=== PATIENT | male | born 1945 | race Caucasian/White ===

== ENCOUNTER 2017-05-29 12:36 | Inpatient (IN) | payer MEDICARE, OTHER ==
[2017-05-29] MEDS ORDERED: LIDOCAINE 4% CR (13:27)
[2017-05-29] MEDS: SODIUM CHLORIDE 0.9% 1L BAG IV* (13:54)
[2017-05-29] MEDS: PIPER-TAZO 3.375 GM IV (PMX) 100 ML IVPB ×2 (13:54→21:32)
[2017-05-29 13:58] LABS: ADD UMIC YES; UR AMORPHOUS CRYSTAL FEW /HPF (NONE SEEN); UR ASCORBIC ACID 40 mg/dL (NEGATIVE); UR BACTERIA FEW /HPF (NONE SEEN); UR BILIRUBIN (Dip) NEGATIVE (NEGATIVE); UR BLOOD (Dip) 1+ mg/dL (NEGATIVE); UR CLARITY CLOUDY (CLEAR); UR COLOR YELLOW (YELLOW); UR GLUCOSE (Dip) NEGATIVE (NEGATIVE); UR KETONES (Dip) NEGATIVE (NEGATIVE); UR LEUKOCYTE ESTERASE (Dip) 3+ Leu/ul (NEGATIVE); UR MUCUS FEW /HPF (NONE SEEN); UR NITRITE (Dip) NEGATIVE (NEGATIVE); UR RBC 38 /HPF (0-5); UR SPECIFIC GRAVITY (Dip) 1.015 (1.003-1.030); UR TOTAL PROTEIN (Dip) NEGATIVE (NEGATIVE); UR UROBILINOGEN (Dip) 2+ mg/dL (NEGATIVE); UR WBC 108 /HPF (0-5)
[2017-05-29 14:07] LABS: ADD MAN DIFF? NO
[2017-05-29 14:09] LABS: WHITE BLOOD COUNT 9.4 10^3/ul (4.8-10.8)
[2017-05-29 14:09] LABS: BASOPHILS % 0.3 % (0.0-2.0); EOSINOPHILS % 0.2 % (0.0-7.0); HEMATOCRIT 34.2 % (42.0-52.0); HEMOGLOBIN 10.9 g/dl (14.0-18.0); LYMPHOCYTES # 1.6 10^3/ul (0.8-2.9); LYMPHOCYTES % 17.4 % (15.0-51.0); MEAN CORPUSCULAR HEMOGLOBIN 26.7 pg (29.0-33.0); MEAN CORPUSCULAR HGB CONC 31.9 g/dl (32.0-37.0); MEAN CORPUSCULAR VOLUME 83.6 fl (82.0-101.0); MEAN PLATELET VOLUME 9.3 fl (7.4-10.4); MONOCYTE # 0.4 10^3/ul (0.3-0.9); NEUTROPHIL # 7.2 10^3/ul (1.6-7.5); NEUTROPHILS % 76.8 % (39.0-77.0); PLATELET COUNT 338 10^3/UL (140-415); RED BLOOD COUNT 4.09 10^6/ul (4.70-6.10); RED CELL DISTRIBUTION WIDTH 15.1 % (11.5-14.5)
[2017-05-29 14:31] LABS: ALANINE AMINOTRANSFERASE 52 IU/L (13-69); ALBUMIN 3.1 g/dl (3.3-4.9); ALBUMIN/GLOBULIN RATIO 0.73; ALKALINE PHOSPHATASE 202 IU/L (42-121); ANION GAP 16 (8-16); ASPARTATE AMINO TRANSFERASE 46 IU/L (15-46); BILIRUBIN,INDIRECT 0.3 mg/dl (0-1.1); BILIRUBIN,TOTAL 0.3 mg/dl (0.2-1.3); BLOOD UREA NITROGEN 12 mg/dl (7-20); CALCIUM 8.9 mg/dl (8.4-10.2); CARBON DIOXIDE 25 mmol/L (21-31); CHLORIDE 102 mmol/L (97-110); CREATININE 0.69 mg/dl (0.61-1.24); GLUCOSE 195 mg/dl (70-220); POTASSIUM 4.1 mmol/L (3.5-5.1); SODIUM 139 mmol/L (135-144); TOTAL PROTEIN 7.3 g/dl (6.1-8.1)
[2017-05-29 14:32] LABS: INR 3.54; PROTIME 36.6 Sec (11.9-14.9); PT RATIO 2.9
[2017-05-29 14:33] LABS: PARTIAL THROMBOPLASTIN TIME 62.6 Sec (25.0-35.0)
[2017-05-29 14:35] LABS: LACTIC ACID 3.2 mmol/L (0.5-2.0)
[2017-05-29] MEDS: VANCOMYCIN 1 GM (PMX) 250 ML IVPB (14:38)
[2017-05-29 15:08] LABS: TROPONIN-I < 0.012 ng/ml (0.00-0.12)
[2017-05-29 16:30] LABS: LACTIC ACID 1.9 mmol/L (0.5-2.0)
[2017-05-29] MEDS ORDERED: ONDANSETRON 4 MG INJ IV ×2 (16:30)
[2017-05-29] MEDS ORDERED: morphine 2 MG INJ IV (16:30)
[2017-05-29] MEDS ORDERED: HYDROCODONE/APAP (5/325) TAB PO ×2 (16:30)
[2017-05-29] MEDS ORDERED: ACETAMINOPHEN 325 MG TAB PO ×2 (16:30)
[2017-05-29] MEDS ORDERED: MAGNESIUM HYDROXIDE 30ML CUP PO (16:30)
[2017-05-29] MEDS ORDERED: NACL 0.9% 3 ML SYG IV (16:30)
[2017-05-29 16:51] LABS: HEMOGLOBIN A1C 6.8 % (0-5.9)
[2017-05-29] MEDS ORDERED: GLUCOSE GEL 15 GRAM TUBE BUCCAL (17:30)
[2017-05-29] MEDS ORDERED: DEXTROSE 50% 50 ML SYRINGE IV ×2 (17:30)
[2017-05-29] MEDS ORDERED: GLUCAGON 1 MG INJ IM (17:30)
[2017-05-29] MEDS ORDERED: GLUCOSE GEL 15 GRAM TUBE PO ×2 (17:30)
[2017-05-29] MEDS ORDERED: VANCOMYCIN IV PER PHARMACY XX (17:30)
[2017-05-29] MEDS: SOD CHLORIDE 0.9% 1,000 ML IV ×2 (17:50→21:54)
[2017-05-29] MEDS: INSULIN ASPART [NOVOLOG] 3 ML PEN SC ×2 (18:05→20:57)
[2017-05-29 19:46] LABS: LACTIC ACID 1.5 mmol/L (0.5-2.0)
[2017-05-29] MEDS ORDERED: PENDING SANTYL ORDER FOR WOUND CARE XX (21:00)
[2017-05-29] MEDS ORDERED: COLLAGENASE 30 GM TUBE TOP (21:00)
[2017-05-29] MEDS: COLLAGENASE 30 GM TUBE TOP (21:32)
[2017-05-29] MEDS ORDERED: VANCOMYCIN 750 MG in DEXTROSE 5% 150 ML IVPB (22:00)
[2017-05-29] MEDS ORDERED: VANCOMYCIN 750 MG in SOD CHLORIDE 0.9% 150 ML IVPB (22:00)
[2017-05-29] MEDS: VANCOMYCIN 750 MG in DEXTROSE 5% 150 ML IVPB (22:20)
[2017-05-30] MEDS: SOD CHLORIDE 0.9% 500 ML IV (00:44)
[2017-05-30] MEDS: ALBUTEROL 0.083% (NEB) 2.5 MG/3 ML AMP HHN ×2 (02:46→20:46)
[2017-05-30] MEDS: PIPER-TAZO 3.375 GM IV (PMX) 100 ML IVPB ×3 (05:32→22:49)
[2017-05-30] MEDS: PANTOPRAZOLE (EC) 40 MG TAB PO (05:32)
[2017-05-30] MEDS: SOD CHLORIDE 0.9% 1,000 ML IV (05:46)
[2017-05-30] MEDS: INSULIN ASPART [NOVOLOG] 3 ML PEN SC ×4 (08:00→20:31)
[2017-05-30] MEDS: COLLAGENASE 30 GM TUBE TOP (08:30)
[2017-05-30] MEDS: VANCOMYCIN 750 MG in DEXTROSE 5% 150 ML IVPB (10:58)
[2017-05-30 11:25] LABS: ADD MAN DIFF? NO
[2017-05-30 11:30] LABS: WHITE BLOOD COUNT 6.9 10^3/ul (4.8-10.8)
[2017-05-30 11:30] LABS: BASOPHILS % 0.3 % (0.0-2.0); EOSINOPHILS % 0.4 % (0.0-7.0); HEMATOCRIT 24.8 % (42.0-52.0); LYMPHOCYTES # 1.7 10^3/ul (0.8-2.9); LYMPHOCYTES % 24.7 % (15.0-51.0); MEAN CORPUSCULAR HEMOGLOBIN 26.8 pg (29.0-33.0); MEAN CORPUSCULAR HGB CONC 32.3 g/dl (32.0-37.0); MEAN CORPUSCULAR VOLUME 83.2 fl (82.0-101.0); MEAN PLATELET VOLUME 9.3 fl (7.4-10.4); MONOCYTE # 0.5 10^3/ul (0.3-0.9); MONOCYTES % 6.5 % (0.0-11.0); NEUTROPHIL # 4.6 10^3/ul (1.6-7.5); NEUTROPHILS % 67.1 % (39.0-77.0); PLATELET COUNT 260 10^3/UL (140-415); RED BLOOD COUNT 2.98 10^6/ul (4.70-6.10)
[2017-05-30 11:48] LABS: ANION GAP 10 (8-16); BLOOD UREA NITROGEN 7 mg/dl (7-20); CARBON DIOXIDE 22 mmol/L (21-31); CHLORIDE 114 mmol/L (97-110); CREATININE 0.43 mg/dl (0.61-1.24); GLUCOSE 120 mg/dl (70-220); INR 4.49; MAGNESIUM 1.4 mg/dl (1.7-2.5); PHOSPHORUS 2.9 mg/dl (2.5-4.9); POTASSIUM 3.1 mmol/L (3.5-5.1); PROTIME 44.2 Sec (11.9-14.9); PT RATIO 3.5; SODIUM 143 mmol/L (135-144)
[2017-05-30] MEDS: POTASSIUM CHLORIDE (SR) 20 MEQ TAB PO ×2 (16:06→20:31)
[2017-05-30] MEDS: MAGNESIUM SULFATE 4 GM/100 ML 100 ML IVPB (18:06)
[2017-05-30 22:00] LABS: VANCOMYCIN,TROUGH 8.8 ug/ml (10.0-20.0)
[2017-05-30] MEDS: SODIUM HYPOCHLORITE 1/40% 1L IRRIG IRR (22:49)
[2017-05-30] MEDS: VANCOMYCIN 1 GM 250 ML IVPB (23:14)
[2017-05-31] MEDS: PIPER-TAZO 3.375 GM IV (PMX) 100 ML IVPB ×3 (06:29→22:51)
[2017-05-31] MEDS: PANTOPRAZOLE (EC) 40 MG TAB PO (06:29)
[2017-05-31] MEDS: INSULIN ASPART [NOVOLOG] 3 ML PEN SC ×4 (08:00→21:00)
[2017-05-31] MEDS: ALBUTEROL 0.083% (NEB) 2.5 MG/3 ML AMP HHN ×2 (08:20→21:46)
[2017-05-31] MEDS: COLLAGENASE 30 GM TUBE TOP (08:23)
[2017-05-31] MEDS: SODIUM HYPOCHLORITE 1/40% 1L IRRIG IRR ×3 (08:23→21:16)
[2017-05-31] MEDS: BISACODYL 10 MG SUPP PR (08:25)
[2017-05-31] MEDS: VANCOMYCIN 1 GM 250 ML IVPB (10:14)
[2017-05-31 10:43] LABS: ADD MAN DIFF? NO; BASOPHILS % 0.4 % (0.0-2.0); EOSINOPHILS % 0.3 % (0.0-7.0); HEMATOCRIT 29.9 % (42.0-52.0); HEMOGLOBIN 9.7 g/dl (14.0-18.0); LYMPHOCYTES # 1.2 10^3/ul (0.8-2.9); LYMPHOCYTES % 15.9 % (15.0-51.0); MEAN CORPUSCULAR HGB CONC 32.4 g/dl (32.0-37.0); MEAN CORPUSCULAR VOLUME 83.3 fl (82.0-101.0); MEAN PLATELET VOLUME 9.4 fl (7.4-10.4); MONOCYTE # 0.4 10^3/ul (0.3-0.9); MONOCYTES % 5.7 % (0.0-11.0); NEUTROPHIL # 5.6 10^3/ul (1.6-7.5); NEUTROPHILS % 76.6 % (39.0-77.0); PLATELET COUNT 312 10^3/UL (140-415); RED BLOOD COUNT 3.59 10^6/ul (4.70-6.10)
[2017-05-31 10:43] LABS: WHITE BLOOD COUNT 7.4 10^3/ul (4.8-10.8)
[2017-05-31 11:05] LABS: INR 3.51; PROTIME 36.3 Sec (11.9-14.9); PT RATIO 2.8
[2017-05-31 11:07] LABS: ALBUMIN 2.8 g/dl (3.3-4.9); ANION GAP 12 (8-16); BLOOD UREA NITROGEN 5 mg/dl (7-20); CARBON DIOXIDE 24 mmol/L (21-31); CHLORIDE 105 mmol/L (97-110); CREATININE 0.55 mg/dl (0.61-1.24); GLUCOSE 241 mg/dl (70-220); PHOSPHORUS 2.8 mg/dl (2.5-4.9); POTASSIUM 4.1 mmol/L (3.5-5.1); SODIUM 137 mmol/L (135-144)
[2017-05-31] MEDS: BACITRACIN 0.9 GM OINT TOP (13:30)
[2017-06-01] MEDS: PIPER-TAZO 3.375 GM IV (PMX) 100 ML IVPB (05:19)
[2017-06-01] MEDS: PANTOPRAZOLE (EC) 40 MG TAB PO (05:19)
[2017-06-01 06:36] LABS: ADD MAN DIFF? NO
[2017-06-01 06:41] LABS: WHITE BLOOD COUNT 8.6 10^3/ul (4.8-10.8)
[2017-06-01 06:41] LABS: BASOPHILS % 0.4 % (0.0-2.0); EOSINOPHILS # 0.1 10^3/ul (0.0-0.5); EOSINOPHILS % 0.8 % (0.0-7.0); HEMATOCRIT 31.3 % (42.0-52.0); HEMOGLOBIN 10.1 g/dl (14.0-18.0); LYMPHOCYTES # 2.3 10^3/ul (0.8-2.9); LYMPHOCYTES % 27.3 % (15.0-51.0); MEAN CORPUSCULAR HEMOGLOBIN 27.2 pg (29.0-33.0); MEAN CORPUSCULAR HGB CONC 32.3 g/dl (32.0-37.0); MEAN CORPUSCULAR VOLUME 84.1 fl (82.0-101.0); MEAN PLATELET VOLUME 9.5 fl (7.4-10.4); MONOCYTE # 0.6 10^3/ul (0.3-0.9); MONOCYTES % 6.7 % (0.0-11.0); NEUTROPHIL # 5.5 10^3/ul (1.6-7.5); NEUTROPHILS % 63.9 % (39.0-77.0); PLATELET COUNT 304 10^3/UL (140-415); RED BLOOD COUNT 3.72 10^6/ul (4.70-6.10)
[2017-06-01 07:00] LABS: INR 2.46; PROTIME 27.3 Sec (11.9-14.9); PT RATIO 2.1
[2017-06-01 07:16] LABS: ALBUMIN 2.7 g/dl (3.3-4.9); ANION GAP 11 (8-16); BLOOD UREA NITROGEN 7 mg/dl (7-20); CALCIUM 8.4 mg/dl (8.4-10.2); CARBON DIOXIDE 26 mmol/L (21-31); CHLORIDE 106 mmol/L (97-110); CREATININE 0.53 mg/dl (0.61-1.24); GLUCOSE 132 mg/dl (70-220); MAGNESIUM 1.8 mg/dl (1.7-2.5); PHOSPHORUS 3.2 mg/dl (2.5-4.9); POTASSIUM 4.2 mmol/L (3.5-5.1); SODIUM 139 mmol/L (135-144)
[2017-06-01] MEDS: INSULIN ASPART [NOVOLOG] 3 ML PEN SC ×4 (08:00→21:00)
[2017-06-01] MEDS: SODIUM HYPOCHLORITE 1/40% 1L IRRIG IRR ×4 (08:02→22:25)
[2017-06-01] MEDS: COLLAGENASE 30 GM TUBE TOP ×2 (08:02→18:10)
[2017-06-01] MEDS: CEFTRIAXONE 1 GM/50 ML (PMX) 50 ML IVPB (14:28)
[2017-06-01] MEDS ORDERED: VANCOMYCIN IV PER PHARMACY XX (14:30)
[2017-06-01] MEDS: VANCOMYCIN 1.25 GM in SOD CHLORIDE 0.9% 250 ML IVPB (16:11)
[2017-06-01] MEDS: DOCUSATE SODIUM 100 MG CAP PO (18:08)
[2017-06-01] MEDS: LACTOBACILLUS RHAMNOSUS CAP PO (22:15)
[2017-06-01] MEDS: MUPIROCIN 2% 22 GM OINT TOP (22:15)
[2017-06-01] MEDS: ALBUTEROL 0.083% (NEB) 2.5 MG/3 ML AMP HHN (22:45)
[2017-06-02] MEDS: VANCOMYCIN 1 GM 250 ML IVPB ×2 (04:08→15:57)
[2017-06-02] MEDS: PANTOPRAZOLE (EC) 40 MG TAB PO (05:15)
[2017-06-02] MEDS: INSULIN ASPART [NOVOLOG] 3 ML PEN SC ×4 (08:00→21:00)
[2017-06-02] MEDS: COLLAGENASE 30 GM TUBE TOP (08:05)
[2017-06-02] MEDS: BISACODYL 10 MG SUPP PR (09:24)
[2017-06-02] MEDS: LACTOBACILLUS RHAMNOSUS CAP PO ×2 (09:24→20:42)
[2017-06-02] MEDS: SODIUM HYPOCHLORITE 1/40% 1L IRRIG IRR ×3 (11:03→21:51)
[2017-06-02] MEDS: MUPIROCIN 2% 22 GM OINT TOP ×2 (11:26→20:43)
[2017-06-02 13:38] LABS: ADD MAN DIFF? NO
[2017-06-02 13:40] LABS: BASOPHILS % 0.2 % (0.0-2.0); EOSINOPHILS # 0.1 10^3/ul (0.0-0.5); EOSINOPHILS % 0.9 % (0.0-7.0); HEMATOCRIT 31.5 % (42.0-52.0); HEMOGLOBIN 10.2 g/dl (14.0-18.0); LYMPHOCYTES # 2.3 10^3/ul (0.8-2.9); LYMPHOCYTES % 27.9 % (15.0-51.0); MEAN CORPUSCULAR HEMOGLOBIN 27.3 pg (29.0-33.0); MEAN CORPUSCULAR HGB CONC 32.4 g/dl (32.0-37.0); MEAN CORPUSCULAR VOLUME 84.2 fl (82.0-101.0); MEAN PLATELET VOLUME 9.4 fl (7.4-10.4); MONOCYTE # 0.4 10^3/ul (0.3-0.9); MONOCYTES % 5.3 % (0.0-11.0); NEUTROPHIL # 5.3 10^3/ul (1.6-7.5); NEUTROPHILS % 65.1 % (39.0-77.0); PLATELET COUNT 310 10^3/UL (140-415); RED BLOOD COUNT 3.74 10^6/ul (4.70-6.10); RED CELL DISTRIBUTION WIDTH 15.4 % (11.5-14.5)
[2017-06-02 13:40] LABS: WHITE BLOOD COUNT 8.1 10^3/ul (4.8-10.8)
[2017-06-02 14:01] LABS: ANION GAP 12 (8-16); BLOOD UREA NITROGEN 8 mg/dl (7-20); CALCIUM 8.5 mg/dl (8.4-10.2); CARBON DIOXIDE 24 mmol/L (21-31); CHLORIDE 105 mmol/L (97-110); CREATININE 0.51 mg/dl (0.61-1.24); GLUCOSE 259 mg/dl (70-220); POTASSIUM 4.2 mmol/L (3.5-5.1); SODIUM 137 mmol/L (135-144)
[2017-06-02 14:02] LABS: ALBUMIN 2.6 g/dl (3.3-4.9); ANION GAP 11 (8-16); BLOOD UREA NITROGEN 8 mg/dl (7-20); CALCIUM 8.4 mg/dl (8.4-10.2); CARBON DIOXIDE 24 mmol/L (21-31); CHLORIDE 106 mmol/L (97-110); CREATININE 0.47 mg/dl (0.61-1.24); GLUCOSE 255 mg/dl (70-220); MAGNESIUM 1.6 mg/dl (1.7-2.5); POTASSIUM 4.3 mmol/L (3.5-5.1); SODIUM 137 mmol/L (135-144)
[2017-06-02] MEDS: CEFTRIAXONE 1 GM/50 ML (PMX) 50 ML IVPB (14:22)
[2017-06-02] MEDS: MAGNESIUM OXIDE 400 MG TAB PO ×2 (15:57→20:42)
[2017-06-02] MEDS: DOCUSATE SODIUM 100 MG CAP PO (20:42)
[2017-06-03 03:38] LABS: VANCOMYCIN,TROUGH 14.1 ug/ml (10.0-20.0)
[2017-06-03] MEDS: VANCOMYCIN 1 GM 250 ML IVPB ×2 (04:04→15:58)
[2017-06-03] MEDS: PANTOPRAZOLE (EC) 40 MG TAB PO (05:38)
[2017-06-03] MEDS: INSULIN ASPART [NOVOLOG] 3 ML PEN SC ×4 (08:00→21:00)
[2017-06-03] MEDS: MUPIROCIN 2% 22 GM OINT TOP ×2 (08:03→21:59)
[2017-06-03] MEDS: SODIUM HYPOCHLORITE 1/40% 1L IRRIG IRR ×3 (08:03→21:59)
[2017-06-03] MEDS: LACTOBACILLUS RHAMNOSUS CAP PO ×2 (08:03→21:59)
[2017-06-03] MEDS: MAGNESIUM OXIDE 400 MG TAB PO ×3 (08:03→21:59)
[2017-06-03 08:54] LABS: ADD MAN DIFF? NO
[2017-06-03 09:02] LABS: BASOPHILS % 0.4 % (0.0-2.0); EOSINOPHILS # 0.1 10^3/ul (0.0-0.5); EOSINOPHILS % 0.8 % (0.0-7.0); HEMATOCRIT 31.5 % (42.0-52.0); LYMPHOCYTES # 3.6 10^3/ul (0.8-2.9); LYMPHOCYTES % 40.3 % (15.0-51.0); MEAN CORPUSCULAR HGB CONC 31.7 g/dl (32.0-37.0); MEAN CORPUSCULAR VOLUME 84.9 fl (82.0-101.0); MEAN PLATELET VOLUME 9.3 fl (7.4-10.4); MONOCYTE # 0.5 10^3/ul (0.3-0.9); NEUTROPHIL # 4.6 10^3/ul (1.6-7.5); NEUTROPHILS % 51.7 % (39.0-77.0); PLATELET COUNT 345 10^3/UL (140-415); RED BLOOD COUNT 3.71 10^6/ul (4.70-6.10); RED CELL DISTRIBUTION WIDTH 15.4 % (11.5-14.5)
[2017-06-03 09:02] LABS: WHITE BLOOD COUNT 8.9 10^3/ul (4.8-10.8)
[2017-06-03 09:30] LABS: ALANINE AMINOTRANSFERASE 51 IU/L (13-69); ALBUMIN/GLOBULIN RATIO 0.83; ALKALINE PHOSPHATASE 144 IU/L (42-121); ANION GAP 11 (8-16); ASPARTATE AMINO TRANSFERASE 43 IU/L (15-46); BILIRUBIN,INDIRECT 0.3 mg/dl (0-1.1); BILIRUBIN,TOTAL 0.3 mg/dl (0.2-1.3); BLOOD UREA NITROGEN 9 mg/dl (7-20); CALCIUM 8.7 mg/dl (8.4-10.2); CARBON DIOXIDE 27 mmol/L (21-31); CHLORIDE 107 mmol/L (97-110); CREATININE 0.52 mg/dl (0.61-1.24); GLUCOSE 148 mg/dl (70-220); LIPASE 50 U/L (23-300); POTASSIUM 3.7 mmol/L (3.5-5.1); SODIUM 141 mmol/L (135-144); TOTAL PROTEIN 6.6 g/dl (6.1-8.1)
[2017-06-03] MEDS ORDERED: COLLAGENASE 30 GM TUBE TOP (11:00)
[2017-06-03] MEDS: COLLAGENASE 30 GM TUBE TOP (11:22)
[2017-06-03] MEDS: CEFTRIAXONE 1 GM/50 ML (PMX) 50 ML IVPB (14:03)
[2017-06-03] MEDS: ENOXAPARIN 40 MG/0.4 ML SYG SC (17:46)
[2017-06-03] MEDS: DOCUSATE SODIUM 100 MG CAP PO (21:59)
[2017-06-04] MEDS: VANCOMYCIN 1 GM 250 ML IVPB ×2 (04:15→17:07)
[2017-06-04] MEDS: PANTOPRAZOLE (EC) 40 MG TAB PO (05:21)
[2017-06-04] MEDS: INSULIN ASPART [NOVOLOG] 3 ML PEN SC ×4 (08:00→20:48)
[2017-06-04] MEDS: COLLAGENASE 30 GM TUBE TOP (08:29)
[2017-06-04] MEDS: LACTOBACILLUS RHAMNOSUS CAP PO ×2 (08:29→20:43)
[2017-06-04] MEDS: ENOXAPARIN 40 MG/0.4 ML SYG SC (08:29)
[2017-06-04] MEDS: MAGNESIUM OXIDE 400 MG TAB PO ×3 (08:29→20:43)
[2017-06-04] MEDS: SODIUM HYPOCHLORITE 1/40% 1L IRRIG IRR ×3 (08:30→20:48)
[2017-06-04] MEDS: MUPIROCIN 2% 22 GM OINT TOP ×2 (08:30→20:43)
[2017-06-04] MEDS: CEFTRIAXONE 1 GM/50 ML (PMX) 50 ML IVPB (16:27)
[2017-06-05] MEDS: VANCOMYCIN 1 GM 250 ML IVPB ×2 (04:07→16:56)
[2017-06-05] MEDS: PANTOPRAZOLE (EC) 40 MG TAB PO (05:55)
[2017-06-05 06:53] LABS: ADD MAN DIFF? NO
[2017-06-05 06:55] LABS: BASOPHIL # 0.1 10^3/ul (0.0-0.1); BASOPHILS % 0.8 % (0.0-2.0); EOSINOPHILS # 0.1 10^3/ul (0.0-0.5); EOSINOPHILS % 1.3 % (0.0-7.0); HEMATOCRIT 30.3 % (42.0-52.0); HEMOGLOBIN 9.6 g/dl (14.0-18.0); LYMPHOCYTES # 2.5 10^3/ul (0.8-2.9); LYMPHOCYTES % 33.2 % (15.0-51.0); MEAN CORPUSCULAR HEMOGLOBIN 27.3 pg (29.0-33.0); MEAN CORPUSCULAR HGB CONC 31.7 g/dl (32.0-37.0); MEAN CORPUSCULAR VOLUME 86.1 fl (82.0-101.0); MEAN PLATELET VOLUME 9.3 fl (7.4-10.4); MONOCYTE # 0.5 10^3/ul (0.3-0.9); MONOCYTES % 6.7 % (0.0-11.0); NEUTROPHIL # 4.3 10^3/ul (1.6-7.5); NEUTROPHILS % 57.3 % (39.0-77.0); PLATELET COUNT 300 10^3/UL (140-415); RED BLOOD COUNT 3.52 10^6/ul (4.70-6.10); RED CELL DISTRIBUTION WIDTH 15.7 % (11.5-14.5)
[2017-06-05 06:55] LABS: WHITE BLOOD COUNT 7.6 10^3/ul (4.8-10.8)
[2017-06-05 07:19] LABS: ALANINE AMINOTRANSFERASE 43 IU/L (13-69); ALBUMIN 2.9 g/dl (3.3-4.9); ALBUMIN/GLOBULIN RATIO 0.78; ALKALINE PHOSPHATASE 139 IU/L (42-121); ANION GAP 11 (8-16); ASPARTATE AMINO TRANSFERASE 40 IU/L (15-46); BILIRUBIN,INDIRECT 0.3 mg/dl (0-1.1); BILIRUBIN,TOTAL 0.3 mg/dl (0.2-1.3); BLOOD UREA NITROGEN 10 mg/dl (7-20); CALCIUM 8.6 mg/dl (8.4-10.2); CARBON DIOXIDE 26 mmol/L (21-31); CHLORIDE 108 mmol/L (97-110); CREATININE 0.57 mg/dl (0.61-1.24); GLUCOSE 131 mg/dl (70-220); MAGNESIUM 1.7 mg/dl (1.7-2.5); PHOSPHORUS 3.5 mg/dl (2.5-4.9); SODIUM 141 mmol/L (135-144); TOTAL PROTEIN 6.6 g/dl (6.1-8.1)
[2017-06-05 07:21] LABS: INR 1.08; PROTIME 14.1 Sec (11.9-14.9); PT RATIO 1.1
[2017-06-05] MEDS: INSULIN ASPART [NOVOLOG] 3 ML PEN SC ×3 (08:00→17:21)
[2017-06-05] MEDS: MUPIROCIN 2% 22 GM OINT TOP (08:18)
[2017-06-05] MEDS: COLLAGENASE 30 GM TUBE TOP (08:19)
[2017-06-05] MEDS: MAGNESIUM OXIDE 400 MG TAB PO ×2 (08:19→12:25)
[2017-06-05] MEDS: LACTOBACILLUS RHAMNOSUS CAP PO (08:19)
[2017-06-05] MEDS: ENOXAPARIN 40 MG/0.4 ML SYG SC (08:19)
[2017-06-05] MEDS: SODIUM HYPOCHLORITE 1/40% 1L IRRIG IRR (08:20)
[2017-06-05] MEDS: BISACODYL 10 MG SUPP PR (11:40)
[2017-06-05] MEDS: CEFTRIAXONE 1 GM/50 ML (PMX) 50 ML IVPB (14:27)
== END 2017-06-05 19:19 | DRG 871 ==
LOC: E/R 12:36 → PP2 16:18
DX: A41.9 Sepsis, unspecified organism (principal); L89.314 Pressure ulcer of right buttock, stage 4; N39.0 Urinary tract infection, site not specified; G82.20 Paraplegia, unspecified; E44.0 Moderate protein-calorie malnutrition; E11.9 Type 2 diabetes mellitus without complications; I10 Essential (primary) hypertension; Z68.21 Body mass index [BMI] 21.0-21.9, adult; Z86.718 Personal history of other venous thrombosis and embolism; Z79.01 Long term (current) use of anticoagulants; J44.9 Chronic obstructive pulmonary disease, unspecified; B95.1 Streptococcus, group B, as the cause of diseases classified elsewhere; B95.62 Methicillin resistant Staphylococcus aureus infection as the cause of diseases classified elsewhere; B96.20 Unspecified Escherichia coli [E. coli] as the cause of diseases classified elsewhere; B96.89 Other specified bacterial agents as the cause of diseases classified elsewhere; D64.9 Anemia, unspecified; Z95.0 Presence of cardiac pacemaker
CPT/HCPCS: 36415; 71045; 73630-LT; 80048; 80053; 80069; 80202; 81001; 82962; 83036; 83605; 83690; 83735; 84100; 84484; 85025; 85610; 85730; 87040; 87070; 87081; 87086; 93005; 93971; 94640; 94664; 96374; 96375; 97161; 97165; 99291-25

== ENCOUNTER 2017-07-24 11:01 | Day surgery (SDC) | payer MEDICARE, OTHER ==
[2017-07-24] MEDS: VANCOMYCIN 1 GM 250 ML IVPB (13:51)
[2017-07-24] MEDS: EPHEDrine SULFATE 50 MG/5 ML SYG IV (17:15)
[2017-07-24] MEDS ORDERED: EPHEDrine SULFATE 50 MG/5 ML SYG (17:28)
== END 2017-07-24 18:35 | disposition home or self-care (01) ==
LOC: SDS 11:01
DX: L89.214 Pressure ulcer of right hip, stage 4 (principal); E11.9 Type 2 diabetes mellitus without complications; I10 Essential (primary) hypertension; Z95.0 Presence of cardiac pacemaker
CPT/HCPCS: 11043; 82962

== ENCOUNTER 2017-07-25 22:02 | Emergency (ER) | payer MEDICARE, OTHER | END 2017-07-25 23:01 | disposition home or self-care (01) | LOC: E/R 22:02 | DX: Z48.01 Encounter for change or removal of surgical wound dressing (principal); Z79.01 Long term (current) use of anticoagulants; Z87.891 Personal history of nicotine dependence | CPT/HCPCS: 99281 ==